=== PATIENT | male | born 1930 | race Asian ===

== ENCOUNTER → 2017-02-25 | Outpatient (CLI) | payer OTHER ==
[~2017-02-25] MED LIST: ADV500/50 IH; ANT25 PO; ASPIR-LOW81 M1 PO; BENADRYL ALLERG25 M1 PO; CARVEDILOL3.125 M1 PO; CASODEX50 MG PO; COMINH INH; COZAAR50 MG PO; DIPHENOX/ATROPI1 TA1 PO; EFF37 PO; FISH OIL PO; FLO4 PO; GLUCOSAMINE SUL1 CA4 PO; HYDROCODONE BIT1 T11 PO; L40 PO; LASIX40 MG PO; LOP600 PO; LUNESTA2 M1 PO; LUPRON DEPOT3.75 MG; MEGL PO; MOT600 PO; MSC15 PO; NORCO1 TA2 PO; PREDNISONE2.5 MG PO; PRI20 PO; PULMICORT0.5 MG/2 M IH; RANEXA500 M1 PO; TESSALON PERLE100 MG PO; XGEVA120 MG/1.7; ZOC20 PO; ZYL300 PO; [UNRECOGNIZED DRUG - OTHER] PO; [UNRECOGNIZED DRUG - OTHER] PO
== END | disposition home or self-care (01) ==
LOC: NM 13:00
DX: R97.21 Rising PSA following treatment for malignant neoplasm of prostate (principal); C61 Malignant neoplasm of prostate; C79.51 Secondary malignant neoplasm of bone; G89.3 Neoplasm related pain (acute) (chronic); J44.9 Chronic obstructive pulmonary disease, unspecified; Z51.11 Encounter for antineoplastic chemotherapy; I25.10 Atherosclerotic heart disease of native coronary artery without angina pectoris; R06.02 Shortness of breath; Z51.89 Encounter for other specified aftercare; G47.00 Insomnia, unspecified; C79.52 Secondary malignant neoplasm of bone marrow; I10 Essential (primary) hypertension